=== PATIENT | female | born 1970 | race Two or more races ===

== ENCOUNTER 2016-12-04 19:48 | Emergency (ER) | payer MEDICAID ==
[~2016-12-04] VITALS: Ht 162.6 cm; Wt 70.5 kg
[2016-12-04 19:51] VITALS: Ht 162.6 cm; Wt 70.5 kg
[2016-12-05] MEDS ORDERED: KETOROLAC 15 MG INJ IM STA (00:23)
--- NOTE | 2016-12-05 00:23 | ERD ---
ER Documentation Chief Complaint Chief Complaint both ear pain x 2 days. headache HPI This 37 year female presents to ED for evaluation of headache and bilateral ear pain since yesterday at 0500 AM, pt reports that she was awake and working when symptoms started history of headaches, patient uses [id number] medication today with no relief. Patient denies photosensitivity, change in vision, dizziness, change in hearing, or discharge coming from ears. ROS All systems reviewed and are negative except as per history of present illness. Medications Home Meds Active Scripts Diazepam* (Valium*) 5 Mg Tablet, 5 MG PO Q8, #10 TAB Prov:EARLE,REGINALDO 12/05/16 Naproxen* (Naprosyn*) 500 Mg Tablet, 500 MG PO BID Y for PAIN AND/OR INFLAMMATION, #20 TAB Prov:EARLE,REGINALDO 12/05/16 Allergies Allergies: Coded Allergies: No Known Allergy (Unverified , 12/04/16) Physical Exam Vitals Vital Signs Date Time Temp Pulse Resp B/P Pulse Ox O2 Delivery O2 Flow Rate FiO2 12/04/16 19:51 98.4 72 20 169/75 99 Physical Exam Const: Well-nourished, well-hydrated, well-appearing 46-year-old female in no acute distress, obvious discomfort holding her neck. Head: Atraumatic no abrasion, laceration, or ecchymosis Eyes: Normal Conjunctiva, PERRLA, EOMI ENT: Lateral tympanic membranes translucent, auditory is moist, right turbinates +3, mucous noted, no maxillary or frontal sinus tenderness, pharynx is moist, uvula midline without shift rises and falls with pronation. Neck: Nontender cervical spine over bony prominence, palpable paraspinal tenderness, trapezial tenderness, normal range of motion with rotation, lateral bending, Resp: Cardio: Abd: Skin: Back: Ext: Neur: Awake and alert Psych: Normal Mood and Affect Results 24 hrs Current Medications Medications (Trade) Dose Ordered Sig/Kourtney Route PRN Reason Start Time Stop Time Status Last Admin Dose Admin Ketorolac Tromethamine (Toradol) 15 mg ONCE STAT IM 12/05/16 00:23 12/05/16 00:25 DC 12/05/16 00:55 Diazepam (Valium) 5 mg ONCE ONCE IV 12/05/16 00:30 12/05/16 00:47 DC Diazepam (Valium) 5 mg ONCE ONCE PO 12/05/16 01:00 12/05/16 01:01 DC 12/05/16 00:53 Procedures/MDM This 46-year-old female presents to emergency department for evaluation of ear pain, and headache, patient reports symptoms started 5 AM yesterday. Patient has history of headaches, denies thunderclap headache, denies nausea, vomiting, photosensitivity, change in behavior. Patient reports headache is at the base of her skull, physical exam and history support paraspinal tenderness, spasm palpated bilateral trapezius, no bony point tenderness, with unremarkable ear examination. Patient is positive for cervical myopathy and suspected tension headache, I do not feel a x-ray is indicated at this time, the C-spine criteria is 0, imaging is not required, plan to treat patient with Toradol, while in emergency department, discharge patient home with Naprosyn, and Valium, instructed to follow-up with primary care physician for referral to physical therapy, patient was instructed to use ice, rest, return to emergency department for nausea, vomiting, change in vision, dizziness. Patient is stable with no new complaints during ER course, clinically there is no current evidence to suggest meningitis, sepsis, otitis media, mastoiditis, subarachnoid bleed, intracranial mass, TIA, CVA or any other emergent condition appearing to require further evaluation or hospitalization. I feel the patient is stable for discharge at this time. I have discussed results, examination findings, the treatment plan with the patient and family present prior to discharge. Indications for emergent reevaluation, side effects of medication were also discussed. All questions were answered. Patient verbalizes understanding and agrees with plan of care. Departure Diagnosis: Primary Impression: Cervical myopathy Condition: Good Patient Instructions: Myofascial Pain Syndrome [facility] Additional Instructions: Thank you for for coming to [facility] for your care today. Please ask your nurse or provider if you have questions about your care today and do not leave until all your questions have been answered. Please use any medications given as directed and follow-up with your doctor (or the doctor you were referred to) in the next 2-3 days. If you do not have a primary care doctor you may [place] [facility] [place] You may also use motrin and tylenol as needed for fever and/or pain unless instructed otherwise by your provider or nurse. Indications for more urgent follow-up have been discussed, but you may return to the Emergency Department at ANY time for any worrisome or worsening symptoms. If you have abdominal pain, please know that no test or exam you received is perfect and you should follow up within 8 hours for continued pain. If you had any imaging studies today, such as an X-Ray or CT Scan, these studies will be reviewed later by a radiologist. You will be called if there are important findings that were not identified today, so make sure the contact information you provided at registration is correct. If you received any narcotic pain control medicine today, such as Vicodin, Morphine or Dilaudid, your coordination and judgment may be affected for a number of hours. Please do not drive or operate heavy machinery, and you may want someone to assist you at home. If you were given a prescription for narcotic medication, be aware that it is very addictive- use sparingly and only if necessary. REGINALDO OG Dec 05, 2016 00:23
[2016-12-05] MEDS ORDERED: DIAZEPAM 5 MG/ML SYG IV ONE (00:30)
[2016-12-05] MEDS ORDERED: DIAZEPAM 5 MG TAB PO ONE (01:00)
[2016-12-05] MEDS ORDERED: NAPR-260 PO (01:26)
[2016-12-05] MEDS ORDERED: DIAZ-90 PO (01:26)
[2016-12-05 01:50] VITALS: BP 145/74; PULSE 72; RESP 16
== END 2016-12-05 01:51 | disposition home or self-care (01) ==
LOC: FTE 19:48
DX: M50.020 Cervical disc disorder with myelopathy, mid-cervical region, unspecified level (principal)
CPT/HCPCS: 96372; J1885; Z7502; Z7610